=== PATIENT | male | born 1985 | race Caucasian/White ===

== ENCOUNTER 2017-09-02 11:11 | Emergency (ER) | payer SELFPAY ==
[2017-09-02 11:32] VITALS: O2SAT 98
[2017-09-02] MEDS ORDERED: ONDANSETRON ODT 8 MG TAB ONE (11:35)
[2017-09-02] MEDS ORDERED: ONDANSETRON ODT 8 MG TAB SL ONE (11:36)
[2017-09-02] MEDS ORDERED: KETOROLAC TROMETHAMINE INJ 60 MG/2 ML VIAL IM ONE (11:58)
[2017-09-02] MEDS ORDERED: traMADol 37.5MG/APAP 325MG 1 EA TAB PO ONE (11:59)
--- NOTE | 2017-09-02 12:02 | ED.PDOC ---
History of Present Illness - General Chief Complaint: Lower Extremity Injury Stated Complaint: left leg injury Time Seen by Provider: 09/02/17 11:58 Source: patient Exam Limitations: no limitations - History of Present Illness Occurred: yesterday Pain - Lower Extremity: moderate: Left Scherer Method of Injury: direct blow - TREE LIMB FELL ON LEG Improving Factors: immobilization Worsening Factors: movement Associated Symptoms: NAUSEA DUE TO PAIN Allergies/Adverse Reactions: Allergies Penicillin G Adverse Reaction (Verified 02/21/14 20:55) Home Medications: Ambulatory Orders Azithromycin Tab [Zithromax Tab] 250 mg PO QD #4 tab 02/21/14 Benzonatate Perles [Tessalon Perles] 100 mg PO Q8HRS PRN #20 cap 02/21/14 Prednisone 50 mg PO DAILY #5 tab 02/21/14 PHENobarbital TAB 32.4MG [Phenobarbital Tab 32.4MG] 32.4 mg PO TID #100 tab 04/04 Phenytoin Sodium Cap Extended [Dilantin Cap] 100 mg PO TID #100 cap 03/22/14 Acetaminophen W/ Codeine [Tylenol W/ CODEINE #3] 1 ea PO Q4HR PRN #24 09/02/17 Ibuprofen 800 mg PO Q8HR PRN #30 tab 09/02/17 Promethazine Tab [Phenergan Tablet] 25 mg PO Q6H PRN #15 tab 09/02/17 Review of Systems - Review of Systems Constitutional: Denies: chills, fever EENTM: Denies: nose congestion, throat pain Respiratory: Denies: cough, short of breath Cardiology: Denies: chest pain, edema Musculoskeletal: States: see HPI, muscle pain. Denies: joint pain, joint swelling Past Medical History (General) - Patient Medical History Hx Seizures: Yes Hx Stroke: No Hx Asthma: Yes - childhood Hx Hypertension: No Hx Diabetes: No Hx Gastroesophageal Reflux: No Surgical History: no surgical history - Vaccination History Hx Tetanus, Diphtheria Vaccination: Yes Hx Influenza Vaccination: No Hx Pneumococcal Vaccination: No - Social History Hx Tobacco Use: Yes Hx Alcohol Use: No Hx Substance Use: No Hx Substance Use Treatment: No Hx Depression: No - Female History Patient : No Family Medical History - Family History Mother Family History: Unknown Physical Exam - Physical Exam General Appearance: Alert, Obvious distress, Well Developed, Well Groomed, Well Hydrated Eyes, Ears, Nose, Throat: normal ENT inspection Neck: normal inspection Cardiovascular/Respiratory: no respiratory distress Back: normal inspection Thigh/Hip: normal inspection, non-tender, no evidence of injury Leg: soft tissue tenderness - TO THE ANTERIOR LEFT SCHERER REGION, SMALL ABRASION NOTED, COMPARTMENTS SOFT, NEUROVASCULARLY INTACT DISTALLY Knee: normal inspection, non-tender, no evidence of injury Ankle: normal inspection, non-tender, no evidence of injury Foot: normal inspection, non-tender, no evidence of injury, other - STRONG DISTAL PULSE Neuro/Tendon: normal sensation, normal motor functions, normal tendon functions , responds to pain Mental Status: alert, oriented x 3 Skin: normal color, warm/dry Progress - Progress Progress: 09/02/17 12:38 PT REPORTS SOME IMPROVEMENT IN PAIN AFTER TORADOL AND ULTRACET. XRAY FINDINGS DISCUSSED. PT INSTRUCTED TO RETURN FOR WORSENING PAIN, PARESTHESIAS, OR CHANGE IN COLOR OF SKIN. PT GIVEN COMPARTMENT SYNDROME D/C INSTRUCTIONS IN ORDER TO KNOW WHAT SIGNS TO LOOK FOR. - EKG/XRAY/CT XRAY: leg - NO ACUTE FRACTURE PER RAD Departure - Departure Clinical Impression: Contusion of left lower leg, Abrasion Time of Disposition: 12:40 Disposition: Discharge to Home or Self Care Condition: Fair Departure Forms: ED Discharge - Pt. Copy, Patient Portal Self Enrollment Instructions: Acute Compartment Syndrome (DC), Contusion (DC) Diet: resume usual diet Activity: increase activity as tolerated Prescriptions: Acetaminophen W/ Codeine [Tylenol W/ CODEINE #3] 1 ea PO Q4HR PRN #24 PRN Reason: Pain Ibuprofen 800 mg PO Q8HR PRN #30 tab PRN Reason: Pain Promethazine Tab [Phenergan Tablet] 25 mg PO Q6H PRN #15 tab PRN Reason: Nausea/Vomiting Home Medications: Ambulatory Orders Azithromycin Tab [Zithromax Tab] 250 mg PO QD #4 tab 02/21/14 Benzonatate Perles [Tessalon Perles] 100 mg PO Q8HRS PRN #20 cap 02/21/14 Prednisone 50 mg PO DAILY #5 tab 02/21/14 PHENobarbital TAB 32.4MG [Phenobarbital Tab 32.4MG] 32.4 mg PO TID #100 tab 04/04 Phenytoin Sodium Cap Extended [Dilantin Cap] 100 mg PO TID #100 cap 03/22/14 Acetaminophen W/ Codeine [Tylenol W/ CODEINE #3] 1 ea PO Q4HR PRN #24 09/02/17 Ibuprofen 800 mg PO Q8HR PRN #30 tab 09/02/17 Promethazine Tab [Phenergan Tablet] 25 mg PO Q6H PRN #15 tab 09/02/17
--- NOTE | 2017-09-02 12:35 | RAD ---
EXAM DESCRIPTION: Left lower leg, 2 views CLINICAL HISTORY: LEFT TIBIA PAIN, S/P TREE LIMB FALLING ON LEG FINDINGS/ IMPRESSION: No fracture of the tibia or fibula No advanced arthrosis or focal osteochondral lesion of the knee or ankle joint included in the [id number]. Anterior tibial marginal osteophyte at the ankle with small well-corticated fragment along the tibial margin on a degenerative basis Mild subcutaneous soft tissue edema anteriorly Electronically signed by: Prince Rivera MD 09/02/2017 12:34 PM CDT
[2017-09-02 12:53] VITALS: BP 132/79; TEMP 98.1
== END 2017-09-02 12:50 | disposition home or self-care (01) ==
LOC: ER 11:11
DX: S80.812A Abrasion, left lower leg, initial encounter (principal); S80.12XA Contusion of left lower leg, initial encounter; Z88.0 Allergy status to penicillin; Z87.891 Personal history of nicotine dependence; W20.8XXA Other cause of strike by thrown, projected or falling object, initial encounter; Y92.9 Unspecified place or not applicable
CPT/HCPCS: 73590; J1885

== ENCOUNTER 2017-11-26 09:31 | Emergency (ER) | payer SELFPAY ==
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
[2017-11-26] MEDS ORDERED: AZITHROMYCIN IV 500 MG VIAL IVPB ONE (10:04)
[2017-11-26] MEDS ORDERED: SODIUM CHLORIDE 0.9% 250ML 250 ML ONE (10:04)
[2017-11-26] MEDS: BENZONATATE PERLES 100 MG CAP PO ONE (10:17)
[2017-11-26] MEDS: CYCLOBENZAPRINE HCL 10 MG TAB PO ONE (10:17)
[2017-11-26] MEDS: AZITHROMYCIN IV 500 MG in SODIUM CHLORIDE 0.9% 250ML 250 ML IVPB ONE (10:17)
[2017-11-26] MEDS: KETOROLAC TROMETHAMINE INJ 30 MG/ML VIAL IV ONE (10:17)
[2017-11-26] MEDS: PROMETHAZINE W/CODEINE SYR 5 ML UD PO ONE (10:44)
--- NOTE | 2017-11-26 11:09 | RAD ---
EXAM DESCRIPTION: Lumbar Spine 3 Views CLINICAL HISTORY: 32 years Male, pain COMPARISON: None available. FINDINGS: Normal lordotic curvature of the lumbar spine is well preserved. The vertebral body heights are well-maintained with no acute compression deformity. The intervertebral disc spaces are well preserved. No evidence of spondylolysis or spondylolisthesis. The visualized prevertebral and paravertebral soft tissues appear grossly unremarkable. IMPRESSION: Normal radiographs of the lumbar spine. Electronically signed by: Ekta Russell MD 11/26/2017 11:08 AM CDT
--- NOTE | 2017-11-26 11:10 | RAD ---
EXAM DESCRIPTION: Chest,1 View CLINICAL HISTORY: 32 years Male, cough, shortness of breath COMPARISON: Radiographs the chest dated 02/21/2014. TECHNIQUE: AP radiograph of the chest was obtained. FINDINGS: Trachea is midline.The cardiomediastinal silhouette is normal in size. The pulmonary vasculature is within normal limits.The lungs are clear with no acute consolidation.No evidence of pleural effusions. IMPRESSION: No acute cardiopulmonary process. Electronically signed by: Ekta Russell MD 11/26/2017 11:08 AM CDT
[2017-11-26 12:36] VITALS: BP 146/86; TEMP 98.9; O2SAT 96
== END 2017-11-26 12:17 | disposition home or self-care (01) ==
LOC: ER 09:31
DX: J40 Bronchitis, not specified as acute or chronic (principal); M54.5 Low back pain; Z88.0 Allergy status to penicillin
CPT/HCPCS: 71045; 72100; 80053; 85025; J0456; J1885; J7050

== ENCOUNTER → 2018-01-27 | Outpatient (CLI) | payer MEDICAID | LOC: YCFC.O 11:59 | PROVIDERS: ATTEND Nurse Practitioner Family | DX: Z00.00 Encounter for general adult medical examination without abnormal findings (principal); R73.01 Impaired fasting glucose; G40.909 Epilepsy, unspecified, not intractable, without status epilepticus; G43.501 Persistent migraine aura without cerebral infarction, not intractable, with status migrainosus; E66.01 Morbid (severe) obesity due to excess calories ==

== ENCOUNTER 2018-01-30 15:12 | Emergency (ER) | payer MEDICAID ==
[2018-01-30] MEDS ORDERED: PROCHLORPERAZINE INJ 10 MG/2 ML VIAL IV ONE (16:06)
[2018-01-30] MEDS ORDERED: KETOROLAC TROMETHAMINE INJ 30 MG/ML VIAL IV ONE (16:06)
--- NOTE | 2018-01-30 16:06 | ED.PDOC ---
History of Present Illness - General Chief Complaint: Headache Stated Complaint: Headache Time Seen by Provider: 01/30/18 15:26 Source: patient Exam Limitations: no limitations - History of Present Illness Initial Comments: Randolph Gonzalez 32 y/o male with history of long standing history of seizure disorder was on phenobarbital and phenytoin and also migraine headache came to er with recurring sizure episode and migraine headache no longer relieved by maxalt.Stated had stopped anti-seizure medications since he never followed up with primary MD.Denies history of head injury.Also with blurry vision during headache episodes. Timing/Duration: 1 week Severity: moderate Improving Factors: nothing Worsening Factors: nothing Associated Symptoms: other Allergies/Adverse Reactions: Allergies Penicillins Allergy (Verified 01/30/18 15:39) Anaphylaxis Home Medications: Ambulatory Orders Levetiracetam [Keppra] 500 mg PO BID #30 tab 01/30/18 Rizatriptan Benzoate [Maxalt] 10 mg PO BID 01/30/18 Review of Systems - Review of Systems EENTM: States: see HPI, blurred vision Neurological: States: see HPI, headache, seizure All other Systems: Reviewed and Negative, No Change from Baseline Past Medical History (General) - Patient Medical History Hx Seizures: Yes - last reported Sz a few days ago Hx Stroke: No Hx Asthma: Yes - childhood Hx Congestive Heart Failure: No Hx Hypertension: No Hx Diabetes: No Hx Gastroesophageal Reflux: No Hx Cancer: No Hx Hepatitis C: No Surgical History: no surgical history - Vaccination History Hx Tetanus, Diphtheria Vaccination: No Hx Influenza Vaccination: No Hx Pneumococcal Vaccination: No - Social History Hx Tobacco Use: No Hx Chewing Tobacco Use: No Hx Alcohol Use: No Hx Substance Use: No Hx Substance Use Treatment: No Hx Depression: No Hx Physical Abuse: No Hx Emotional Abuse: No Hx Suspected Abuse: No - Female History Patient : No Family Medical History - Family History Mother Family History: Unknown Hx Family Diabetes: Yes - multiple family members Physical Exam - Physical Exam General Appearance: Alert, Comfortable, Other - speech fluent Eye Exam: bilateral normal Ears, Nose, Throat: hearing grossly normal, normal ENT inspection, normal pharynx Neck: non-tender, full range of motion, supple Respiratory: chest non-tender, lungs clear, normal breath sounds, no respiratory distress Cardiovascular/Chest: normal peripheral pulses, regular rate, rhythm, no gallop, no murmur Peripheral Pulses: radial,right: 2+, radial,left: 2+ Gastrointestinal/Abdominal: soft, no organomegaly Back Exam: no CVA tenderness, no vertebral tenderness Extremity: no pedal edema, no calf tenderness Neurologic: no motor/sensory deficits, alert, oriented x 3, other - no pronator drift Skin Exam: normal color, warm/dry Lymphatic: no adenopathy Progress - Progress Progress: 01/30/18 17:34 Vital Signs - 24 hr 01/30/18 01/30/18 15:26 16:36 Temperature 98.2 F Pulse Rate [ 97 H 85 Left Radial] Respiratory 18 20 Rate Blood Pressure 136/108 131/83 [Left Arm] O2 Sat by Pulse 98 97 Oximetry - Results/Orders Results/Orders: 01/30/18 16:06 IV Care:Saline Lock per Protoc QSHIFT URINE DRUG SCREEN, 7 ASSAY Stat 01/30/18 17:16 URINALYSIS Stat Laboratory Results - last 24 hr 01/30/18 01/30/18 16:31 16:31 WBC 7.7 RBC 4.89 Hgb 14.1 Hct 41.9 L MCV 85.7 MCH 28.8 MCHC 33.6 RDW 13.6 Plt Count 318 MPV 7.5 Absolute Neuts (auto) 4.80 Absolute Lymphs (auto) 2.30 Absolute Monos (auto) 0.40 Absolute Eos (auto) 0.10 Absolute Basos (auto) 0.00 Neutrophils % 62.5 Lymphocytes % 29.8 Monocytes % 5.3 Eosinophils % 1.9 Basophils % 0.5 Sodium 139 Potassium 4.0 Chloride 103 Carbon Dioxide 27 Anion Gap 13.0 BUN 13 Creatinine 0.77 BUN/Creatinine Ratio 16.9 Random Glucose 114 H Serum Osmolality 278.5 Calcium 9.6 Total Bilirubin 0.3 AST 22 ALT 33 Alkaline Phosphatase 36 L Serum Total Protein 7.9 Albumin 4.3 Globulin 3.6 H Albumin/Globulin Ratio 1.2 - EKG/XRAY/CT CT Ordered: Yes - head-no acute intracranial abnormalities Departure - Departure Clinical Impression: Seizure disorder Migraine Qualifiers: Migraine type: unspecified Status migrainosus presence: without status migrainosus Intractability: not intractable Qualified Code(s): G43.909 - Migraine, unspecified, not intractable, without status migrainosus Time of Disposition: 17:39 Disposition: Discharge to Home or Self Care Condition: Fair Departure Forms: ED Discharge - Pt. Copy, Patient Portal Self Enrollment Instructions: DI for Headache, Ketogenic Diet, Seizures, Adult (DC), Seizures Referrals: Jeri Carbone NP [Primary Care Provider] - 1-2 Weeks Prescriptions: Levetiracetam [Keppra] 500 mg PO BID #30 tab Home Medications: Ambulatory Orders Levetiracetam [Keppra] 500 mg PO BID #30 tab 01/30/18 Rizatriptan Benzoate [Maxalt] 10 mg PO BID 01/30/18 Additional Instructions: Need to sign up with primary Md MARCELINA [phone] for further neurologist referral/evaluation;return to ER as needed
[2018-01-30] MEDS ORDERED: levETIRAcetam INJ 1,000 MG in SODIUM CHLORIDE 0.9% 100ML 100 ML IVPB ONE (16:08)
[2018-01-30] MEDS ORDERED: levETIRAcetam INJ 100 MG/ML VIAL IVPB ONE (16:14)
[2018-01-30] MEDS ORDERED: SODIUM CHLORIDE 0.9% 100ML 100 ML IVPB ONE (16:15)
--- NOTE | 2018-01-30 16:44 | CT ---
EXAM DESCRIPTION: Head: Computed Tomography. CLINICAL HISTORY: SZ/Headaches. "Starts at my temples and goes down my neck." COMPARISON: CT scan of the head without contrast 07/21/2011.. Stable since the prior study. TECHNIQUE: Non-helical axial scans through the skull and brain, at 2.5 x 20 mm intervals, non-contrast. Coronal and sagittal 2.0 mm reconstructions. Total Exam DLP: 859.97 mGy-cm. This exam was performed according to our departmental dose-optimization program which includes automated exposure control, adjustment of the mA and/or kV according to patient size and/or use of iterative reconstruction technique; to reduce radiation dose to as low as reasonably achievable (ALARA). FINDINGS: No hemorrhage, no mass-effect, and no midline shift. Normal escobar-white matter differentiation. No abnormal radiodense material in the brain parenchyma. Vascular calcifications not present; physiologic calcifications in the pineal gland and choroid plexus. No effacement or displacement of the ventricles, CSF spaces, or subdural spaces. No extra axial fluid collection or hemorrhage. No gross abnormalities of the bony calvarium. Minimal thickening in some of the paranasal sinus cavities. Increased amount of adipose tissue in the scalp compared to the prior study. IMPRESSION: 1. No hemorrhage, no mass effect, no midline shift. Normal CT scan of the head without IV contrast. 2. CT scans are insensitive for detecting small CVAs in the first 24 hours after onset. Evaluation of the brain stem is also limited. If symptoms persist, consider NON-EMERGENT MRI scan of the brain with diffusion imaging. Electronically signed by: Gian Norton MD 01/30/2018 4:43 PM SERVICE DESK MANAGER
[2018-01-30 18:08] VITALS: BP 125/89; TEMP 97.8; O2SAT 99
== END 2018-01-30 18:00 | disposition home or self-care (01) ==
LOC: ER 15:12
DX: G43.909 Migraine, unspecified, not intractable, without status migrainosus (principal); G40.909 Epilepsy, unspecified, not intractable, without status epilepticus; Z88.0 Allergy status to penicillin; Z79.899 Other long term (current) drug therapy
CPT/HCPCS: 36415; 70450; 80053; 80307; 81001; 85025; J0780; J1885; J7050

== ENCOUNTER 2018-02-08 14:49 | Emergency (ER) | payer MEDICAID ==
[2018-02-08] MEDS ORDERED: LIDOCAINE 1% 10 ML VIAL INJ ONE (15:10)
[2018-02-08] MEDS ORDERED: SULFA/TRIMETH 800/160 (DS) TAB 1 EA TAB PO ONE (15:44)
--- NOTE | 2018-02-08 15:46 | ED.PDOC ---
History of Present Illness - General Chief Complaint: Laceration Stated Complaint: laceration Time Seen by Provider: 02/08/18 14:52 Source: patient Exam Limitations: no limitations - History of Present Illness Initial Comments: the patient is a 13-year-old male presenting to the emergency room after having cut the hypothenar eminence of his left hand with a skill saw just prior to arrival. Laceration is approximately 1 inch in length. Tendon function does appear to be preserved. Risk and benefits of repair were explained prior and patient agreed to proceed. He does still have some mild numbness to the lateral third of the finger. He has injured the 5th finger previously and possibly had some numbness prior. Wound is cleaned with hydrogen peroxide and irrigated for 4 minutes with water. Wound actually appeared fairly clean. He reports that he is up-to-date on his tetanus. no other injuries. Estimated blood loss prior to arrival was probably 5 cc. Capillary refills within normal limits. No other injuries. Exploration of the wound does not appear to show any tendon lacerations. The laceration did not extend down to the bone.of note the patient didn't pass out prior to arrival while looking at the wound. He is coming back around upon his arrival here. No evidence of any injury from the syncopal event. This appears to be vasovagal in nature. No evidence of any seizure activity at this time. Blood sugars within normal limits. Timing/Duration: momentarily Severity: moderate Improving Factors: nothing Worsening Factors: nothing Associated Symptoms: denies symptoms Allergies/Adverse Reactions: Allergies Penicillins Allergy (Verified 01/30/18 15:39) Anaphylaxis Home Medications: Ambulatory Orders Levetiracetam [Keppra] 500 mg PO BID #30 tab 01/30/18 Rizatriptan Benzoate [Maxalt] 10 mg PO BID 01/30/18 Sulfa/Trimeth 800/160 (Ds) Tab [Bactrim DS Tab] 1 ea PO BID #14 tab 02/08/18 Tramadol HCl 50 mg PO Q8HR PRN #20 tab 02/08/18 Review of Systems - Review of Systems Constitutional: States: no symptoms reported EENTM: States: no symptoms reported Respiratory: States: no symptoms reported Cardiology: States: no symptoms reported Gastrointestinal/Abdominal: States: no symptoms reported Genitourinary: States: no symptoms reported Musculoskeletal: States: see HPI Skin: States: see HPI Neurological: States: no symptoms reported All other Systems: No Change from Baseline Past Medical History (General) - Patient Medical History Hx Seizures: Yes - last reported Sz a few days ago Hx Stroke: No Hx Asthma: Yes - childhood Hx Congestive Heart Failure: No Hx Hypertension: No Hx Diabetes: No Hx Gastroesophageal Reflux: No Hx Cancer: No Hx Hepatitis C: No - Vaccination History Hx Tetanus, Diphtheria Vaccination: No Hx Influenza Vaccination: No Hx Pneumococcal Vaccination: No - Social History Hx Tobacco Use: No Hx Chewing Tobacco Use: No Hx Alcohol Use: No Hx Substance Use: No Hx Substance Use Treatment: No Hx Depression: No Hx Physical Abuse: No Hx Emotional Abuse: No Hx Suspected Abuse: No - Female History Patient : No Family Medical History - Family History Mother Family History: Unknown Hx Family Diabetes: Yes - multiple family members Physical Exam - Physical Exam General Appearance: Alert, Comfortable, No apparent distress Eye Exam: bilateral normal Ears, Nose, Throat: hearing grossly normal, normal ENT inspection Neck: full range of motion, supple Respiratory: lungs clear, normal breath sounds, no respiratory distress, no accessory muscle use Cardiovascular/Chest: normal peripheral pulses, regular rate, rhythm, no edema Peripheral Pulses: radial,right: 2+, radial,left: 2+ Gastrointestinal/Abdominal: non tender, soft Rectal Exam: deferred Back Exam: normal inspection Extremity: normal range of motion, no pedal edema, normal capillary refill Neurologic: blasting entryman II-XII nml as tested, alert, normal mood/affect, oriented x 3, other - see history of present illness Skin Exam: normal color - laceration as per history of present illness Comments: Vital Signs - 24 hr 02/08/18 14:53 Temperature 97.5 F L Pulse Rate [ 85 right brachial] Respiratory 16 Rate Blood Pressure 107/59 [right brachial ] O2 Sat by Pulse 99 Oximetry Progress - Progress Progress: 02/08/18 15:49 the patient's a 32 year-old male presenting to the emergency room secondary to a laceration to the ulnar palmar aspect of his left hand with a skill saw. The wound was cleaned and reapproximated with 6 simple sutures of 3-0 Ethilon. Sut ures need to be removed in about 10 days. He does need to keep the wound dry for at least 24 hours. After that he needs to wash it twice daily at least with an antibacterial soap and water. He'll be placed on Bactrim twice daily for the next 7 days to prevent any infection. no evidence of any tendon laceration at this time but he may have some decreased sensation to the lateral aspect of the pinky that he will have to watch out for in the future. ER warnings were given. Departure - Departure Clinical Impression: Laceration, Vasovagal syncopes ICD-10 Supporting Text: accidental laceration of left palm, initial visit Disposition: Discharge to Home or Self Care Condition: Fair Departure Forms: ED Discharge - Pt. Copy, Patient Portal Self Enrollment Instructions: DI for Laceration Repair, DI for Laceration Repair -- Simple Diet: regular diet Activity: increase activity as tolerated Referrals: Jeri Carbone NP [Primary Care Provider] - 1-2 Weeks Prescriptions: Tramadol HCl 50 mg PO Q8HR PRN #20 tab PRN Reason: Moderate Pain Sulfa/Trimeth 800/160 (Ds) Tab [Bactrim DS Tab] 1 ea PO BID #14 tab Home Medications: Ambulatory Orders Levetiracetam [Keppra] 500 mg PO BID #30 tab 01/30/18 Rizatriptan Benzoate [Maxalt] 10 mg PO BID 01/30/18 Sulfa/Trimeth 800/160 (Ds) Tab [Bactrim DS Tab] 1 ea PO BID #14 tab 02/08/18 Tramadol HCl 50 mg PO Q8HR PRN #20 tab 02/08/18 Additional Instructions: the patient's a 32 year-old male presenting to the emergency room secondary to a laceration to the ulnar palmar aspect of his left hand with a skill saw. The wound was cleaned and reapproximated with 6 simple sutures of 3-0 Ethilon. Sutu res need to be removed in about 10 days. He does need to keep the wound dry for at least 24 hours. After that he needs to wash it twice daily at least with an antibacterial soap and water. He'll be placed on Bactrim twice daily for the next 7 days to prevent any infection. no evidence of any tendon laceration at this time but he may have some decreased sensation to the lateral aspect of the pinky that he will have to watch out for in the future. ER warnings were given.
[2018-02-08] MEDS ORDERED: traMADol HCL 50 MG TAB PO ONE (15:58)
--- NOTE | 2018-02-08 16:19 | RAD ---
EXAM DESCRIPTION: Hand,Left 3 Views CLINICAL HISTORY: 32 years Male cut with skillsaw to left lateral palm COMPARISON: None TECHNIQUE: AP, lateral and oblique views of the left hand are obtained. FINDINGS: OSSEOUS: There is no evidence of acute fracture or osteolytic/osteoblastic lesions. There is no evidence of subluxation or dislocation. The joint spaces are preserved. There is no evidence of degenerative osteophytosis or sclerosis. There is no evidence of marginal erosive changes to suggest an inflammatory arthritis. SOFT TISSUE: There is no significant soft tissue swelling or mass. The reported pulmonary soft tissue laceration is not clearly discernible on the views submitted. No evidence of significant soft tissue calcifications. No radiopaque foreign bodies. IMPRESSION: No acute osseous abnormalities. Remainder of findings as described above. Electronically signed by: Trish El MD 02/08/2018 4:[address] [facility]
[2018-02-08 16:26] VITALS: BP 115/63; TEMP 97.9; O2SAT 97
== END 2018-02-08 16:10 | disposition home or self-care (01) ==
LOC: ER 14:49
DX: S61.412A Laceration without foreign body of left hand, initial encounter (principal); R55 Syncope and collapse; R56.9 Unspecified convulsions; Z79.899 Other long term (current) drug therapy; Z88.0 Allergy status to penicillin; W31.2XXA Contact with powered woodworking and forming machines, initial encounter; Y92.9 Unspecified place or not applicable